=== PATIENT | male | born 1995 | race Caucasian/White ===

== ENCOUNTER 2020-05-14 10:44 | Emergency (ER) | payer OTHER ==
[2020-05-14 11:06] VITALS: BP 137/87; PULSE 84; TEMP 99.3; BMI 31.4
--- NOTE | 2020-05-14 11:21 | PDOC ---
History of Present Illness - General Chief Complaint: Substance Abuse Stated Complaint: WITHDRAW Time Seen by Provider: 05/14/20 11:02 History Source: Patient Exam Limitations: No Limitations - History of Present Illness Initial Comments: 05/14/20 11:15 25y M with PMH of opiate dependence presenting to the ER for opiate withdrawal. Pt states he takes 30mg oxycodone x8-10 every day. He states last use was last night. Reports diffuse body aches, nausea, irritability, restlessness, anxiety. Denies IV drug use, cocaine use, alcohol use. Has gone to rehab 5 months ago at [facility] but relapsed. Denies fever, chills, chest pain, sob, vomiting, diarrhea, constipation, urinary symptoms. PMD: none PSH: none Meds: none Allergies: nkda Social: oxycodone Past History - Medical History Allergies/Adverse Reactions: Allergies Allergy/AdvReac Type Severity Reaction Status Date / Time No Known Allergies Allergy Verified 05/14/20 11:06 COPD: No - Psycho-Social/Smoking History Smoking History: Current every day smoker Information on smoking cessation initiated: No - Substance Abuse Hx (Audit-C & DAST Scrn) How often the patient has a drink containing alcohol: Never Score: In Men: 4 or > Positive; In Women: 3 or > Positive: 0 Screen Result (Pos requires Nsg. Audit-10AR): Negative In the last yr the pt used illegal drug/Rx for NonMed reason: Yes Score: Yes response is considered Positive: 1 Screen Result (Positive result requires Nsg. DAST-10): Positive Review of Systems - Review of Systems Constitutional: Yes: See HPI. No: Chills, Fever HEENTM: Yes: Nose Congestion. No: Nose Pain Respiratory: No: Symptoms reported Cardiac (ROS): No: Symptoms Reported ABD/GI: Yes: See HPI : No: Symptoms Reported Musculoskeletal: Yes: See HPI Integumentary: No: Symptoms Reported Neurological: No: Symptoms reported *Physical Exam - Vital Signs Last Vital Signs Temp Pulse Resp BP Pulse Ox 99.3 F 84 16 137/87 100 05/14/20 10:55 05/14/20 10:55 05/14/20 10:55 05/14/20 10:55 05/14/20 10:55 - Physical Exam General Appearance: Yes: Nourished, Appropriately Dressed, Mild Distress HEENT: positive: EOMI, ARIANA, Pharynx Normal. negative: Rhinorrhea Neck: positive: Trachea midline, Supple. negative: Lymphadenopathy (R), Lymphadenopathy (L) Respiratory/Chest: positive: Lungs Clear, Normal Breath Sounds. negative: Crackles, Rales, Rhonchi, Stridor, Wheezing Cardiovascular: positive: Regular Rhythm, Regular Rate, S1, S2. negative: Edema, JVD, Murmur Vascular Pulses: Dorsalis-Pedis (R): 2+, Doralis-Pedis (L): 2+ Gastrointestinal/Abdominal: positive: Normal Bowel Sounds, Soft. negative: Tender Musculoskeletal: negative: CVA Tenderness Extremity: positive: Normal Capillary Refill. negative: Pedal Edema, Swelling Integumentary: positive: Normal Color, Dry, Warm Neurologic: positive: sanitary aide II-XII NML intact, Fully Oriented, Alert, Normal Mood/Affect, Normal Response, Motor Strength 5/5 Medical Decision Making - Medical Decision Making 05/14/20 11:41 25y M with pmh of opiate dependence presenting to the ER for withdrawal vitals wnl PE shows pt restless in bed, uncomfortable appearing, pupils slightly dilated otherwise normal. COWS 15 discussed case with [facility] , will see patient. 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 pt agrees to plan. 05/14/20 11:46 Discharge - Discharge Information Problems reviewed: Yes Clinical Impression/Diagnosis: Opiate withdrawal Opiate dependence Qualifiers: Substance use status: in withdrawal Qualified Code(s): F11.23 - Opioid dependence with withdrawal Condition: Stable Disposition: HOME - Admission No - Follow up/Referral - Patient Discharge Instructions Additional Instructions: You were seen in the ER today for withdrawal from opiates. You will be going to [facility] for rehab. Please keep up with the program. Come back to the ER for worsening pain, if you are continuously vomiting, if you are having hallucinations or if any new or concerning symptom develops. Thank you - Post Discharge Activity
--- NOTE | 2020-05-14 11:43 | PDOC ---
Attending Attestation - Resident Resident Name: PreciousRima - ED Attending Attestation I have performed the following: I have examined & evaluated the patient, The case was reviewed & discussed with the resident, I agree w/resident's findings & plan, Exceptions are as noted - HPI HPI: 05/14/20 11:42 25 years old with 1 year history of OxyContin abuse previous history of withdrawal but usually self medicated presents to the emergency department with withdrawal symptoms including anxiety restlessness diffuse body pains nausea. Denies fever chills chest pain shortness of breath symptoms are moderate to severe persistent constant - Physicial Exam PE: 05/14/20 11:42 Vitals: Triage Vital signs reviewed General Appearance: Anxious, uncomfortable Head: Atraumatic, Eyes: Pupils equal reactive round, extraocular movement intact Neck: Supple; no Nucal rigidity Chest Wall: Nontender Cardiac: Regular rate and rhythym, no murmurs, no rubs, no gallops, Lungs: Clear to auscultation bilateral, good air movement bilaterally, Abdomen: Soft, non distended, normal bowel sounds, non tender to palpation Extremities: Full range of motion to all extremities, no cyanosis, clubbing, or edema Skin: Warm and dry, no rashes or lesions, no rash, no petechiae Neuro: AOX3; cranial Nerves 2-12 grossly intact, strength intact to all extremities, sensation intact to all extremities, gait normal Psych: Normal mood, normal affect - Medical Decision Making 05/14/20 11:43 Cows score 15 patient medically clear for detox Case discussed with [facility] for detox accepted will transfer to [facility] for further management. Discharge - Discharge Information Problems reviewed: Yes Clinical Impression/Diagnosis: Opiate withdrawal Opiate dependence Qualifiers: Substance use status: in withdrawal Qualified Code(s): F11.23 - Opioid dependence with withdrawal Condition: Stable Disposition: HOME - Follow up/Referral - Patient Discharge Instructions Additional Instructions: You were seen in the ER today for withdrawal from opiates. You will be going to [facility] for rehab. Please keep up with the program. Come back to the ER for worsening pain, if you are continuously vomiting, if you are having hallucinations or if any new or concerning symptom develops. Thank you - Post Discharge Activity
[2020-05-14 12:03] LABS: COCAINE, UR NEGATIVE ng/ml (CUTOFF=300); PHENCYCLIDINE,URINE NEGATIVE ng/ml (CUTOFF=25); URINE AMPHETAMINES NEGATIVE ng/ml (CUTOFF=500); URINE BARBITURATES NEGATIVE ng/ml (CUTOFF=200); URINE BENZODIAZEPINES NEGATIVE ng/ml (CUTOFF=200)
[2020-05-14 12:09] LABS: METHADONE, UR NEGATIVE ng/ml (CUTOFF=300)
[2020-05-14 12:18] LABS: OPIATES, URI POSITIVE ng/ml (CUTOFF=300)
== END 2020-05-14 11:52 | disposition home or self-care (01) ==
LOC: JER 10:44
DX: F11.23 Opioid dependence with withdrawal (principal)
CPT/HCPCS: 80307; 99284-25